=== PATIENT | female | born 1945 | race Asian ===

== ENCOUNTER 2019-07-05 05:45 | Day surgery (SDC) | payer OTHER ==
[~2019-07-05] VITALS: Ht 152.4 cm; Wt 79.4 kg
[2019-07-05] MEDS ORDERED: SPIR50TA PO (07:17)
[2019-07-05] MEDS ORDERED: SIMV20TA2 PO (07:17)
[2019-07-05] MEDS ORDERED: CALC-823 PO (07:17)
[2019-07-05] MEDS ORDERED: LEVO75TA7 PO (07:17)
[2019-07-05] MEDS ORDERED: VERA120C2 PO (07:17)
[2019-07-05] MEDS ORDERED: THROMBIN (BOVINE) 5000 UNITS/ VIAL TP ONE (07:34)
[2019-07-05] MEDS ORDERED: ONDANSETRON HCL 4 MG/2 ML VIAL IVP PRN ×3 (09:15→15:45)
[2019-07-05] MEDS ORDERED: HYDROcodone/ACETAMIN 5-325 MG TAB (NORCO/ VICODIN) PO PRN (09:45)
[2019-07-05] MEDS ORDERED: fentaNYL CITRATE/PF 100 MCG/2 ML AMP IVP ONE (10:18)
[2019-07-05] MEDS ORDERED: HYDROmorphone 1 MG INJ. 1 MG/ML AMPUL IVP PRN (10:45)
[2019-07-05] MEDS ORDERED: HYDROmorphone 1 MG INJ. 1 MG/ML AMPUL ONE (10:51)
[2019-07-05 11:30] VITALS: BP_SYST 130
--- NOTE | 2019-07-05 11:33 | NUR ---
RECEIVED PT FROM PACU RECEIVED REPORT FROM LATESHA. FAMILY AT BEDSIDE. VITAL SIGNS STABLE. NONLABORED BREATHING NOTED. IV INTACT AND PATENT, NO SIGNS OF INFILTRATION. NO ACUTE DISTRESS NOTED. SURGICAL DRESSING AROUND NECK, CLEAN, DRY, AND INTACT, NO ACTIVE BLEEDING NOTED. PAIN MANAGEMENT CONTROLLED. NO ACUTE DISTRESS NOTED. ALL NEEDS MET. CALL LIGHT IN REACH. FALL AND ASPIRATION PRECAUTIONS IN PLACE. CONTINUE TO MONITOR.
[2019-07-05 11:38] VITALS: BP_SYST 130
--- NOTE | 2019-07-05 12:06 | NUR ---
PRN MEDS PRN MEDS ADMINISTERED ORDERED, EDUCATION GIVEN, TOLERATED WELL. PAIN MANAGEMENT CONTROLLED. NO ACUTE DISTRESS NOTED. ALL NEEDS MET. CALL LIGHT IN REACH. CONTINUE TO MONITOR.
[2019-07-05] MEDS ORDERED: NORMAL SALINE 5 ML DISP.SYRIN IVF SCH (14:00)
--- NOTE | 2019-07-05 15:29 | NUR ---
NOTE DAUGHTER SAID PATIENT WANTED NORCO FOR PAIN. WENT TO ADMINISTER PAIN MEDICATION AND PATIENT REFUSED NORCO AND IS REQUESTING FOR TYLENOL WILL CALL MD FOR TYLENOL
--- NOTE | 2019-07-05 15:38 | NUR ---
SPOKE TO AND REPORTED PATIENT WANTS TYLENOL FOR PAIN AND THAT ZOFRAN 4MG IS INEFFECTIVE WITH PATIENT VOMITTING AT THIS TIME. PER TYLENOL ORDERED, ZOFRAN 4MG IVP X1 NOW AND CHANGE ZOFRAN 4MG IVP Q6HR TO ZOFRAN 6 MG IVP Q6HR; ORDERS CLARIFIED,VERIFIED AND CARRIED OUT.
[2019-07-05 15:40] VITALS: BP_SYST 133
[2019-07-05] MEDS ORDERED: ONDANSETRON HCL 4 MG/2 ML VIAL IVP ONE (15:45)
[2019-07-05] MEDS: NORMAL SALINE 5 ML DISP.SYRIN IVF SCH ×2 (15:45→21:46)
[2019-07-05] MEDS: ACETAMINOPHEN 500 MG TABLET PO PRN (15:46)
--- NOTE | 2019-07-05 16:00 | NUR ---
ASSISTED PT WITH BEDPAN AND PERINEAL CARE, TOLERATED WELL. FAMILY AT BEDSIDE. PATIENT CLEAN AND DRY. NO ACUTE DISTRESS NOTED. ALL NEEDS MET. CALL LIGHT IN REACH. CONTINUE TO MONITOR.
[2019-07-05] MEDS: DEXAMETHASONE SOD PHOSPHATE 4 MG/ML VIAL IVP SCH (17:21)
--- NOTE | 2019-07-05 17:21 | NUR ---
ROUTINE MEDS MEDS ADMINISTERED ORDERED, EDUCATION GIVEN, FAMILY AT BEDSIDE, TOLERATED WELL. NO ACUTE DISTRESS NOTED. ALL NEEDS MET. CALL LIGHT IN REACH.
--- NOTE | 2019-07-05 18:40 | NUR ---
CLOSING NOTES PT RESTING IN BED. CHEST RISE AND FALL NOTED. NONLABORED BREATHING NOTED. FAMILY AT BEDSIDE. IV INTACT AND PATENT, NO SIGNS OF INFILTRATION. NO ACUTE DISTRESS NOTED. SURGICAL DRESSING CLEAN, DRY, AND INTACT, NO ACTIVE BLEEDING NOTED. PAIN MANAGEMENT CONTROLLED. NO ACUTE DISTRESS NOTED. ALL NEEDS MET. BED IN LOWEST AND LOCKED POSITION. CALL LIGHT IN REACH. FALL AND ASPIRATION PRECAUTIONS IN PLACE. WILL ENDORSE TO NOC NURSE.
--- NOTE | 2019-07-05 19:30 | NUR ---
Opening Note Received patient resting in bed, AOx4. No s/sx of distress, nonlabored breathing. IV is SL to left hand. She is talking with visitors in room. Bed is locked in lowest position and call light w/in reach. Updated board and reviewed plan of care.
[2019-07-05 20:00] VITALS: BP_SYST 132
--- NOTE | 2019-07-05 21:08 | NUR ---
paged paged for Dr Mattson, dialed . s/w Maira.
[2019-07-05] MEDS: VERAPAMIL HCL 120 MG TABLET.SA PO SCH (21:47)
--- NOTE | 2019-07-05 21:47 | NUR ---
Medication, Tylenol due medication given, Stefani. Patient reporting pain and Tylenol was given as ordered. Denies nausea.
--- NOTE | 2019-07-05 22:01 | NUR ---
paged second page for Dr Mattson, dialed . s/w
--- NOTE | 2019-07-05 23:11 | NUR ---
paged third page for Dr Mattson, dialed and was redirected to HCP exchange. s/w Aiden, stated Dr Enrique is on-call.
--- NOTE | 2019-07-05 23:29 | NUR ---
Dr. Enrique s/w Dr. Enrique ([facility]) due to Dr. Mattson did not call back. I let her know the patient was inquiring about antibiotic and CPAP at night. Dr. Enrique said, Dr. Mattson is the surgeon and it is up to him if he wants to order an antibiotic and she did not provide antibiotic orders. She did provide CPAP order for the patient.
[2019-07-06 00:02] VITALS: BP_SYST 130
--- NOTE | 2019-07-06 00:15 | NUR ---
Patient is awake Patient is awake and wants to hold on dose of decadron. She is aware that medication is every eight hours and dose was not given at 1600.
[2019-07-06] MEDS: DEXAMETHASONE SOD PHOSPHATE 4 MG/ML VIAL IVP SCH (01:52)
--- NOTE | 2019-07-06 01:52 | NUR ---
Decadron due medication given, eight hours after first does. Patient tolerated.
[2019-07-06] MEDS: ACETAMINOPHEN 500 MG TABLET PO PRN ×2 (02:32→08:13)
[2019-07-06] MEDS: NORMAL SALINE 5 ML DISP.SYRIN IVF SCH (07:03)
--- NOTE | 2019-07-06 07:05 | NUR ---
closing note Patient resting on chair next to bed. Presently denies nausea and pain is tolerable, she will wait till breakfast for Tylenol. Will endorse report.
--- NOTE | 2019-07-06 07:30 | NUR ---
Note Dr Hylton on the floor at pt's bedside doing assessment and instructing pt and her family verbally on discharge instructions.
[2019-07-06 08:00] VITALS: BP_SYST 129
--- NOTE | 2019-07-06 08:00 | NUR ---
Note Pt sitting up in BS chair eating her mechanical soft diet - no problems/difficulties eating/swallowing at this time. Pt's and daughter at bedside at this time. No SOB/resp distress or severe throat pain/discomfort noted at this time. IV in left hand intact and patent. No needs noted at this time. Call light within reach. Incision on throat intact and steri-strips intact and dry.
[2019-07-06] MEDS: VERAPAMIL HCL 120 MG TABLET.SA PO SCH (08:12)
[2019-07-06] MEDS ORDERED: SPIRONOLACTONE 50 MG TABLET (ALDACTONE) PO SCH (09:00)
[2019-07-06 09:27] VITALS: BP_SYST 125
--- NOTE | 2019-07-06 09:30 | NUR ---
Note Pt dressed in street clothes and packed all belongings. Pt and her checked side table and drawers for belongings. IV in left hand dc'd at this time. Call light within reach.
--- NOTE | 2019-07-06 09:49 | NUR ---
Nutrition Update Filiberto Scale 17 noted. Pt admitted for disorder of thyroid, unspecified. Diet: mechanical soft BMI: 34.2 kg/m2 RD to follow per nutrition care standards.
--- NOTE | 2019-07-06 09:50 | NUR ---
Note Pt was given discharge instructions and questions/concerns were answered at this time. Pt stable at this time. Pt off the floor via wheelchair to private car with all her belongings and discharge paperwork.
[2019-07-06 10:31] VITALS: BP_SYST 129
== END 2019-07-06 09:50 | disposition home or self-care (01) ==
LOC: SDS 05:45 → SMU 05:45 → SDS 07-06 09:50
PROVIDERS: ATTEND Otolaryngology Plastic Surgery within the Head & Neck
DX: E04.1 Nontoxic single thyroid nodule (principal); G47.33 Obstructive sleep apnea (adult) (pediatric); E03.9 Hypothyroidism, unspecified; I48.91 Unspecified atrial fibrillation; I45.10 Unspecified right bundle-branch block; M17.11 Unilateral primary osteoarthritis, right knee; E11.22 Type 2 diabetes mellitus with diabetic chronic kidney disease; I12.9 Hypertensive chronic kidney disease with stage 1 through stage 4 chronic kidney disease, or unspecified chronic kidney disease; N18.2 Chronic kidney disease, stage 2 (mild); Z88.2 Allergy status to sulfonamides; Z88.5 Allergy status to narcotic agent; E04.0 Nontoxic diffuse goiter; Z86.000 Personal history of in-situ neoplasm of breast; E78.5 Hyperlipidemia, unspecified; E66.01 Morbid (severe) obesity due to excess calories
CPT/HCPCS: 60220; 87081 ×2; 88307; C1782; J1100 ×2; J1170; J2405; J7120; J3010